=== PATIENT | male | born 1980 | race Caucasian/White ===

== ENCOUNTER 2020-03-12 05:00 | Emergency (ER) | payer MEDICAID, SELFPAY ==
[2020-03-12 05:05] VITALS: BP 143/78; PULSE 78; RESP 19; TEMP 36.8; O2SAT 98; BMI 27.8
--- NOTE | 2020-03-12 05:13 | CT_ITS ---
PROCEDURE: CT ABDOMEN PELVIS WO CON CLINICAL INDICATION: abd pain Left lower quadrant pain COMPARISON: ABDPELW/O CT ABD PELVIS W/O CONTRAST from 12/28/2016 TECHNIQUE: Axial images obtained with sagittal and coronal reformats. All CT scans at the facility use one or more dose reduction, viz: automated exposure control, ma/kV adjustment per patient size (including targeted exams where dose is matched to indication, i.e. head), or iterative reconstruction technique. FINDINGS: LOWER THORAX: Mild atelectatic changes noted in the lingula. ABDOMEN & PELVIS: The liver, gallbladder, spleen, adrenal glands, and pancreas have an unremarkable appearance. There are bilateral renal calculi measuring up to 5 mm in the lower pole of the right kidney and 1-2 mm in the mid polar region of the left kidney. There is a 3 mm stone in the proximal to mid aspect of the left ureter at the L3-L4 level with minimal dilatation of the left renal collecting system and proximal ureter proximal to the stone. Unremarkable appendix. Bowel gas pattern is nonspecific with nondistended fluid-filled loops of small bowel noted. No free air. No pelvic mass or abnormal fluid collection. There are few scattered small mesenteric lymph nodes Degenerative changes are present in the lower thoracic spine. There is a limbus vertebra at L4. IMPRESSION: 3 mm proximal to mid left ureteral stone with mild obstructive uropathy and bilateral nephrolithiasis. Dictated by: Peter Rangel MD 03/12/2020 05:44 Electronically signed by Peter Rangel MD in [place] 03/12/2020 05:44
[2020-03-12 05:21] LABS: Microscopic, Urine URINE MICROSCOPIC (MICROSCOPIC)
--- NOTE | 2020-03-12 05:26 | PC.NURSE ---
pt to radiology for ct at this time
[2020-03-12 05:28] LABS: Basophils # 0.1 K/mm3 (0-0.2); Basophils % 0.6 % (0.1-2.0); Eosinophils # 0.3 K/mm3 (0.0-0.4); Eosinophils % 2.6 % (0.1-12.0); Hematocrit 47.8 % (42.0-52.0); Hemoglobin 16.3 g/dL (14.1-18.0); Lymphocytes # 2.9 K/mm3 (0.7-4.5); Lymphocytes % 21.9 % (10-50); Mean Corpuscular HGB Conc 34.2 g/dL (31.8-35.4); Mean Corpuscular Hemoglobin 33.8 pg (27.0-31.2); Mean Corpuscular Volume 98.9 fl (80-94); Mean Platelet Volume 7.1 fl (7.4-10.4); Monocytes # 0.5 K/mm3 (0.1-1.0); Monocytes % 3.8 % (1.7-9.3); Neutrophils # 9.2 K/mm3 (1.8-7.8); Neutrophils % 71.1 % (37.0-80.0); Platelet Count 319 K/mm3 (142-424); Red Blood Count 4.83 M/mm3 (4.60-6.20); Red Cell Distribution Width 13.4 % (11.5-17.5)
[2020-03-12 05:30] LABS: Chloride 110 mmol/L (98-107); Potassium 4.1 mmoL/L (3.5-5.1); Sodium 142 mmol/L (136-145)
[2020-03-12 05:32] LABS: Amylase 82 U/L (30-110)
[2020-03-12 05:33] LABS: Alanine Aminotransferase 22 U/L (12-78); Albumin Level 4.2 g/dl (3.5-5.0); Albumin/Globulin Ratio 1.5 (1.1-1.8); Alkaline Phosphatase 62 U/L (38-126); Aspartate Amino Transferase 26 U/L (17-59); Bilirubin,Total 0.3 mg/dl (0.2-1.3); Blood Urea Nitrogen 14 mg/dl (9-20); Calcium 8.7 mg/dl (8.4-10.2); Creatinine Clearance Estimated 117 mL/min (50-200); Estimated Glomerular Filt Rate 75 ml/min (>60); GFR (African American) 91 ML/MIN (>60); Globulin 2.8 g/dL (1.3-3.2); Glucose 123 mg/dl (74-100); Lipase 215 U/L (23-300)
[2020-03-12 05:37] LABS: Anion Gap 12.1 mEq/L (5-15); Carbon Dioxide 24 mmol/L (22.0-30.0)
[2020-03-12 05:41] LABS: Appearance,Urine CLEAR (Clear); Blood, Urine 3+ (Negative); Glucose,Urine (UA) Negative (Negative); Ketones,Urine Negative (Negative); Leukocyte Esterase,Urine Negative (Negative); Nitrate,Urine Negative (Negative); PH,Urine 5.5 (5.0-8.5); Protein,Urine 1+ (Negative); Specific Gravity, Urine >= 1.030 (1.005-1.030); Urobilinogen,Urine 0.2 EU/dl (0.2)
[2020-03-12 05:45] LABS: Bilirubin,Urine Negative (Negative); Color,Urine Dark Yellow (Yellow)
[2020-03-12 05:47] LABS: Bacteria,Urine 1+ /lpf; Mucus,Urine 1+ /lpf; RBC,Urine TNTC #/hpf (0-3); WBC,Urine Occasional #/hpf (0-3)
--- NOTE | 2020-03-12 05:57 | HMH.EDUROGM ---
ED Disposition Clinical Impression: Renal colic on left side Disposition: Home, Self-Care Condition on Discharge: Good Instructions: DI for Kidney Stones Additional Instructions: fluids and see pcp and urology for follow up Prescriptions: Tamsulosin HCl [Flomax 0.4mg capsule] 0.4 mg PO HS #10 cap Transmission Status: Pending to [facility] Hydrocod/Acet 5/325 mg [[place] 5/325mg tablet] 1 tab PO Q6HP PRN #10 tab PRN Reason: Moderate To Severe Pain Prescription Printed Referrals: Daryn Oswald MD [Primary Care Provider] - - Critical Care Critical Care Time: No Attestation: On 03/12/20, the high probability of a clinically significant, sudden or life threatening deterioration of the following system(s) required my full and direct attention, intervention and personal management. The time I documented below is in addition to time spent performing reported procedures but includes the following listed in this critical care notation. Medical Decision Making - Medical Records Medical records reviewed: Yes: I reviewed the patient's medical records. - Vargas Inquiry Pt receiving controlled substance: No Vital Signs: 03/12/20 05:05 Temperature 98.2 F Temperature Source Oral Pulse Rate [Right Brachial] 78 Respiratory Rate 19 Blood Pressure [Right Arm] 143/78 H Blood Pressure Mean [Right Arm] 99 Blood Pressure Source [Right Arm] Automatic Cuff Blood Pressure Position [Right Arm] Sitting 02 Sat by Pulse Oximetry 98 Oxygen Delivery Method Room Air - Lab Data Lab results reviewed: Yes: I reviewed the patient's lab results. Lab Results 03/12/20 05:05: Urine Color Dark yellow, Urine Appearance Clear, Urine pH 5.5, Ur Specific [place] >= 1.030, Urine Protein 1+, Urine Glucose (UA) Negative, Urine Ketones Negative, Urine Blood 3+, Urine Nitrate Negative, Urine Bilirubin Negative, Urine Urobilinogen 0.2, Ur Leukocyte Esterase Negative, Urine RBC Tntc, Urine WBC Occasional, Urine Bacteria 1+, Urine Mucus 1+ 03/12/20 05:10: WBC 13.0 H, RBC 4.83, Hgb 16.3, Hct 47.8, MCV 98.9 H, MCH 33.8 H, MCHC 34.2, RDW 13.4, Plt Count 319, MPV 7.1 L, Neut % (Auto) 71.1, Lymph % (Auto) 21.9, [place] % (Auto) 3.8, Eos % (Auto) 2.6, Baso % (Auto) 0.6, Neut # (Auto) 9.2 H, Lymph # (Auto) 2.9, [place] # (Auto) 0.5, Eos # (Auto) 0.3, Baso # (Auto) 0.1 03/12/20 05:10: Sodium 142, Potassium 4.1, Chloride 110 H, Carbon Dioxide 24, Anion Gap 12.1, BUN 14, Creatinine 1.10, Estimated Creat Clear 117, Estimated GFR 75, Est GFR ( Amer) 91, Glucose 123 H, Calcium 8.7, Total Bilirubin 0.3, AST 26, ALT 22, Alkaline Phosphatase 62, Total Protein 7.0, Albumin 4.2, Globulin 2.8, Albumin/Globulin Ratio 1.5, Amylase 82, Lipase 215 Result diagrams: 03/12/20 05:10 03/12/20 05:10 Orders (Tests/Meds): ED MEDICATIONS Generic Name Dose Route Start Last Admin Trade Name Freq PRN Reason Stop Dose Admin Sodium Chloride 1,000 mls @ 999 mls/hr 03/12/20 05:30 03/12/20 05:21 Sod Chlor 0.9% 1000ml Bag IV 03/12/20 06:30 999 mls/hr .Q1H1M ALEX Administration Discontinued Medications Generic Name Dose Route Start Last Admin Trade Name Freq PRN Reason Stop Dose Admin Ketorolac Tromethamine 30 mg 03/12/20 05:18 03/12/20 05:21 Toradol 30mg/Ml Vial IV 03/12/20 05:19 30 mg ONCE ONE Administration Morphine Sulfate 4 mg 03/12/20 05:18 03/12/20 05:21 Morphine 4mg/Ml Syringe IV 03/12/20 05:19 4 mg ONCE ONE Administration Ondansetron HCl 4 mg 03/12/20 05:18 03/12/20 05:21 Zofran 4mg/2ml Vial IV 03/12/20 05:19 4 mg ONCE ONE Administration - CT Data CT Scan: Abdomen, Pelvis Time Received: 06:[address] Reviewed: Yes: I have viewed the radiologist's interpretation Preliminary Findings: Abnormal (3 mm stone ) Male Urogenital HPI - General Chief complaint: Urogenital-Male Stated complaint: Possible Kidney stone Time Seen by Provider: 03/12/20 05:15 Mode of Arrival: Family Vehicle Source o
[2020-03-12 06:13] VITALS: BP 119/73; PULSE 72; RESP 16; TEMP 36.9; O2SAT 98
== END 2020-03-12 06:15 | disposition home or self-care (01) ==
PROVIDERS: Emergency Provider Emergency Medicine; PCP Emergency Medicine
DX: N23 Unspecified renal colic (principal); F17.210 Nicotine dependence, cigarettes, uncomplicated
CPT/HCPCS: 74176; 80053; 81001; 82150; 83690; 85025; 96365; 96375; 96376; 99283; J2405

== ENCOUNTER 2020-08-29 10:33 | Emergency (ER) | payer MEDICAID, SELFPAY ==
[2020-08-29 11:00] VITALS: BP 144/87; PULSE 83; RESP 14; TEMP 36.6; O2SAT 97; BMI 27.8
--- NOTE | 2020-08-29 11:21 | HMH.EDUTC ---
[facility] Disposition Clinical Impression: Bronchitis, COVID-19 virus test result unknown Disposition: Home, Self-Care Condition on Discharge: Good Instructions: DI for Nausea -- Adult, DI for Nausea -- Child, DI for Diarrhea and Traveler's Diarrhea -- Adult, DI for Diarrhea and Traveler's Diarrhea -- Child Additional Instructions: Tylenol and ibuprofen as needed for pain or fever Humidifier/vaporizer/hot steamy shower Follow-up with primary care tomorrow. Follow-up immediately in the ER of the [facility] for new or worsening symptoms or no noticeable improvement over the next 48-72 hours. Stop smoking Inhaler every 4-6 hours as needed. Should help open airways improved cough, wheezing, shortness of breath Start steroids today. Helps with inflammation therefore coughing and wheezing. Follow directions on package. Patient states they have taken them before. self isolate until test results are known neg Prescriptions: Albuterol Sulfate [Albuterol Sulfate Hfa] 6.7 gm IH Q6 PRN 14 Days #1 [email or web address] PRN Reason: Wheezing Prescription Printed predniSONE [Prednisone 20mg Tab] 20 mg PO BID #10 tab Prescription Printed Referrals: Daryn Oswald MD [Primary Care Provider] - Forms: Work/School Release Time of Disposition: 11:27 Medical Decision Making - Vargas Inquiry Pt receiving controlled substance: No Vital Signs: 08/29/20 11:00 Temperature 97.8 F Temperature Source Oral Pulse Rate [Right Brachial] 83 Respiratory Rate 14 Blood Pressure [Right Arm] 144/87 H Blood Pressure Mean [Right Arm] 106 Blood Pressure Source [Right Arm] Automatic Cuff Blood Pressure Position [Right Arm] Sitting 02 Sat by Pulse Oximetry 97 Oxygen Delivery Method Room Air Orders (Tests/Meds): ORDERS Category Date Time Status Covid-19 Nasal PCR ([facility]) Routine Lab 08/29/20 10:45 Received [facility] HPI - General Chief complaint: Nausea/Vomiting/Diarrhea Stated complaint: fever, cramps, sore throat, loss of taste/smell Time Seen by Provider: 08/29/20 11:21 Mode of Arrival: Ambulatory Source of Information: Patient Limitations: No Limitations Description of Symptoms (Recalled from Triage Doc. by RN): PATIENT REQUESTING COVID TEST; C/O HEADACHE, NAUSEA, DIARRHEA, FATIGUE, AND FEVER HEENT Symptoms (Recalled from RN notes): Yes Resp Symptoms (Recalled from RN notes): No Skin Symptoms (Recalled from RN notes): No MS Symptoms (Recalled from RN notes): No Functional Status (Recalled from RN notes): WNL - History of Present Illness Provider Complaint: 40 yr old male presents for covid test. pt states he is having nausea,diarreha, body aches, wheezing and low grade fever for 5 days. pt states he does feel better today but request covid test due to ill mom. - Related Data Previous Rx's Medication Instructions Recorded ibuprofen 800 mg tablet 800 mg PO Q8HP PRN #15 tab 04/05/18 meloxicam 15 mg tablet 15 mg PO DAILY #30 tab 06/11/18 Hydrocod/Acet 5/325 mg [[place] 1 tab PO Q6HP PRN #10 tab 03/12/20 5/325mg tablet] Tamsulosin HCl [Flomax 0.4mg 0.4 mg PO HS #10 cap 03/12/20 capsule] Albuterol Sulfate [Albuterol 6.7 gm IH Q6 PRN 14 Days #1 08/29/20 Sulfate Hfa] hfa.aer.ad predniSONE [Prednisone 20mg 20 mg PO BID #10 tab 08/29/20 Tab] Allergies Allergy/AdvReac Type Severity Reaction Status Date / Time No Known Allergies Allergy Verified 06/11/18 14:21 - Worker's Comp Is this a Worker's Comp case?: No [facility] History - Hepatitis A Screen Drug use history?: No High risk sexual behaviors?: No History of sexually transmitted infection?: No Currently employed?: No Childcare worker?: No Do you have indoor plumbing?: Yes Do you have electricity?: Yes Attestation statement:: This patient has been screened for Hepatitis A risk factors. I have reviewed the patient's past medical history: Yes Medical History: Reports:: Kidney Stones Laterality Cases: Right: Arthroscopy Knee Other Surgeries: Yes: Ureter S
[2020-08-29 11:28] VITALS: BP 144/87; PULSE 83; RESP 14; TEMP 36.6; O2SAT 97
== END 2020-08-29 11:33 | disposition home or self-care (01) ==
PROVIDERS: Emergency Provider Nurse Practitioner Family; PCP Emergency Medicine
DX: Z20.822 Contact with and (suspected) exposure to COVID-19 (principal); J20.9 Acute bronchitis, unspecified
CPT/HCPCS: 99202; G0463; U0003

== ENCOUNTER 2020-10-28 11:57 | Emergency (ER) | payer MEDICAID, SELFPAY ==
[2020-10-28 12:16] VITALS: BP 135/80; PULSE 77; RESP 14; TEMP 37; O2SAT 99; BMI 27.8
[2020-10-28 12:33] VITALS: BP 132/81; PULSE 74; RESP 16; TEMP 36.6
--- NOTE | 2020-10-28 12:37 | HMH.EDUTC ---
[facility] Disposition Clinical Impression: Viral syndrome, Exposure to COVID-19 virus Disposition: Home, Self-Care Condition on Discharge: Good Instructions: DI for COVID-19 (Suspected or Confirmed ), Preventing the Spread of Coronavirus Discharge Instructions Additional Instructions: Drink plenty of fluids. Take tylenol for pain or fever. Return if you begin to have difficulty breathing. Follow up with your regular doctor. GO TO THE ER FOR ANY WORSENING SYMPTOMS Prescriptions: Ondansetron [Zofran 4mg ODT] 4 mg PO Q8HP PRN #12 tab.rapdis PRN Reason: Nausea Transmission Status: Received by [facility] Benzonatate [Tessalon Perle 100mg Cap] 100 mg PO TIDP PRN #30 cap PRN Reason: Cough Transmission Status: Received by [facility] Azithromycin [Z-Avinash 250mg Tab*] 250 mg PO UD DOSE PK #6 tab Transmission Status: Received by [facility] Referrals: Daryn Oswald MD [Primary Care Provider] - Forms: Work/School Release Time of Disposition: 12:40 Medical Decision Making - Medical Records Medical records reviewed: No: I reviewed the patient's medical records. - Vargas Inquiry Pt receiving controlled substance: No Vital Signs: 10/28/20 12:16 10/28/20 12:33 Temperature 98.6 F 98 F Temperature Source Oral Pulse Rate 74 Pulse Rate [Right] 77 Respiratory Rate 14 16 Blood Pressure 132/81 Blood Pressure [Right Arm] 135/80 Blood Pressure Mean [Right Arm] 98 Blood Pressure Source [Right Arm] Automatic Cuff Blood Pressure Position [Right Arm] Sitting 02 Sat by Pulse Oximetry 99 Oxygen Delivery Method Room Air Orders (Tests/Meds): ORDERS Category Date Time Status Covid-19 Nasal PCR ([facility]) Routine Lab 10/28/20 12:19 Received [facility] HPI - General Stated complaint: stomach cramps, tired covid exposure Time Seen by Provider: 10/28/20 12:25 Mode of Arrival: Ambulatory Source of Information: Patient Limitations: No Limitations Description of Symptoms (Recalled from Triage Doc. by RN): EXPOSURE TO COVID POSITIVE DAUGHTER. PT PRESENTS WITH FATIGUE, MUSCLE ACHES, AND [place]. HEENT Symptoms (Recalled from RN notes): No Resp Symptoms (Recalled from RN notes): No Skin Symptoms (Recalled from RN notes): No MS Symptoms (Recalled from RN notes): Yes (BODY ACHES) Functional Status (Recalled from RN notes): NA - History of Present Illness Provider Complaint: e states that since yesterday she has had sore throat, body aches, cough and feeling bad. His daughter was diagnosed with Covid-19 yesterday. - Related Data Previous Rx's Medication Instructions Recorded ibuprofen 800 mg tablet 800 mg PO Q8HP PRN #15 tab 04/05/18 meloxicam 15 mg tablet 15 mg PO DAILY #30 tab 06/11/18 Hydrocod/Acet 5/325 mg [[place] 1 tab PO Q6HP PRN #10 tab 03/12/20 5/325mg tablet] Tamsulosin HCl [Flomax 0.4mg 0.4 mg PO HS #10 cap 03/12/20 capsule] Albuterol Sulfate [Albuterol 6.7 gm IH Q6 PRN 14 Days #1 08/29/20 Sulfate Hfa] hfa.aer.ad predniSONE [Prednisone 20mg 20 mg PO BID #10 tab 08/29/20 Tab] Azithromycin [Z-Avinash 250mg Tab*] 250 mg PO UD DOSE PK #6 tab 10/28/20 Benzonatate [Tessalon Perle 100mg 100 mg PO TIDP PRN #30 cap 10/28/20 Cap] Ondansetron [Zofran 4mg ODT] 4 mg PO Q8HP PRN #12 tab.rapdis 10/28/20 Allergies Allergy/AdvReac Type Severity Reaction Status Date / Time No Known Allergies Allergy Verified 10/28/20 12:03 - Worker's Comp Is this a Worker's Comp case?: No [facility] History - Hepatitis A Screen Drug use history?: No High risk sexual behaviors?: No History of sexually transmitted infection?: No Currently employed?: No Childcare worker?: No Do you have indoor plumbing?: Yes Do you have electricity?: Yes Attestation statement:: This patient has been screened for Hepatitis A risk factors. I have reviewed the patient's past medical history: Yes Medical History: Reports:: Kidney Stones Laterality Cases: Right: Arthroscopy Knee Other [place]
== END 2020-10-28 12:48 | disposition home or self-care (01) ==
PROVIDERS: Emergency Provider Nurse Practitioner Family; PCP Emergency Medicine
DX: Z20.822 Contact with and (suspected) exposure to COVID-19 (principal); B34.9 Viral infection, unspecified; F17.210 Nicotine dependence, cigarettes, uncomplicated
CPT/HCPCS: 99202; G0463; U0003

== ENCOUNTER 2021-09-22 07:32 | Emergency (ER) | payer MEDICAID, SELFPAY ==
[2021-09-22 07:32] VITALS: BP 153/97; PULSE 81; RESP 18; TEMP 36.9; O2SAT 100; BMI 27.8
[2021-09-22 07:41] VITALS: BP 152/94; PULSE 82; O2SAT 96
--- NOTE | 2021-09-22 07:55 | HMH.EDGENADL ---
ED Disposition Clinical Impression: Kidney stone on right side Disposition: Home, Self-Care Condition on Discharge: Fair Instructions: DI for Kidney Stones Additional Instructions: You have been evaluated for flank pain, kidney stone. Please follow-up with Dr. Saucedo at your earliest convenience. Call his office for an appointment. Take ibuprofen for pain. [place] for extreme pain. Zofran for nausea. Flomax. Return to the emergency department at once for any new or worsening symptoms, intractable pain, vomiting, fevers, other concerns Prescriptions: Hydrocod/Acet 5/325 mg [[place] 5/325mg tablet] 1 tab PO Q6HP PRN #12 tab PRN Reason: Severe Pain Transmission Status: Received by [facility] Tamsulosin HCl [Flomax 0.4mg capsule] 0.4 mg PO HS #7 cap Transmission Status: Received by [facility] Ibuprofen [Ibuprofen 600mg Tablet] 600 mg PO Q6 #12 tab Transmission Status: Received by [facility] ondansetron HCL [Ondansetron 4mg tab*] 4 mg PO Q6 PRN #12 tab PRN Reason: Vomiting Transmission Status: Received by [facility] Referrals: Daryn Oswald MD [Primary Care Provider] - Emmanuel Saucedo MD [Staff Physician] - Forms: Work/School Release Time of Disposition: 09:57 - Critical Care Critical Care Time: No Attestation: On 09/22/21, the high probability of a clinically significant, sudden or life threatening deterioration of the following system(s) required my full and direct attention, intervention and personal management. The time I documented below is in addition to time spent performing reported procedures but includes the following listed in this critical care notation. Medical Decision Making - Medical Records Medical records reviewed: Yes: I reviewed the patient's medical records. - Vargas Inquiry Pt receiving controlled substance: No Vital Signs: 09/22/21 07:32 09/22/21 07:41 09/22/21 08:21 Temperature 98.4 F Temperature Source Oral Pulse Rate 82 82 Pulse Rate [Left Radial] 81 Respiratory Rate 18 Blood Pressure 152/94 H Blood Pressure [Right Arm] 153/97 H Blood Pressure Mean [Right Arm] 115 Blood Pressure Source [Right Arm] Automatic Cuff Blood Pressure Position [Right Arm] Sitting 02 Sat by Pulse Oximetry 100 96 97 Oxygen Delivery Method Room Air - Lab Data Lab Results 09/22/21 07:40: Urine Color Yellow, Urine Appearance Clear, Urine pH 5.5, Ur Specific [place] >= 1.030, Urine Protein 1+, Urine Glucose (UA) Negative, Urine Ketones Negative, Urine Blood 3+, Urine Nitrate Negative, Urine Bilirubin 1+ A, Urine Urobilinogen 0.2, Ur Leukocyte Esterase Negative, Urine RBC 50-100, Urine WBC Occasional, Ur Squamous Epith Cells Occasional, Calcium Oxalate Crystal Trace, Urine Bacteria Trace 09/22/21 07:45: WBC 6.1, RBC 4.88, Hgb 15.9, Hct 48.8, MCV 100.0 H, MCH 32.6 H, MCHC 32.6, RDW 13.0, Plt Count 331, MPV 7.7, Neut % (Auto) 45.6, Lymph % (Auto) 37.4, [place] % (Auto) 7.3, Eos % (Auto) 5.8, Baso % (Auto) 4.0 H, Neut # (Auto) 2.8, Lymph # (Auto) 2.3, [place] # (Auto) 0.4, Eos # (Auto) 0.4, Baso # (Auto) 0.2 09/22/21 07:45: Sodium 141, Potassium 4.1, Chloride 110 H, Carbon Dioxide 25, Anion Gap 10.1, BUN 15, Creatinine 0.80, Estimated Creat Clear 157, Estimated GFR 107, Est GFR ( Amer) 130, Glucose 112 H, Calcium 8.8, Total Bilirubin 0.4, AST 35, ALT 23, Alkaline Phosphatase 74, Total Protein 7.0, Albumin 4.3, Globulin 2.7, Albumin/Globulin Ratio 1.6 Result diagrams: 09/22/21 07:45 09/22/21 07:45 Orders (Tests/Meds): ED MEDICATIONS Generic Name Dose Route Start Last Admin Trade Name Freq PRN Reason Stop Dose Admin Tamsulosin HCl 0.4 mg 09/22/21 21:00 09/22/21 08:48 Tamsulosin 0.4mg Capsule PO 10/22/21 20:59 0.4 mg HS ALEX Administration Discontinued Medications Generic Name Dose Route Start Last Admin Trade Name Freq PRN Reason Stop Dose Admin Hydrocodone Bitart/Acetaminophen 2 tab 09/22/21 08:41 09/22/21 08
--- NOTE | 2021-09-22 08:01 | CT_ITS ---
FINAL REPORT CLINICAL HISTORY: right flank pain rt lower quad pain since 1 am this morning nausea/vomiting COMPARISON: 03/12/2020 FINDINGS: Technique: Axial images through the abdomen and pelvis were performed by computed tomography. This study was performed with techniques to keep radiation doses as low as reasonably achievable (ALARA). Individualized dose reduction techniques using automated exposure control or adjustment of mA and/or kV according to the patient's size were employed. Abdomen: The lung bases are clear. The liver is normal in size and attenuation. The gallbladder is present. The spleen is unremarkable. The pancreas is normal. The adrenals are normal. The aorta is normal in caliber. There is a circumaortic left renal vein. There is moderate right hydronephrosis secondary to an obstructing stone in the right UPJ measuring 9 mm. Multiple small stones are seen in the renal collecting systems bilaterally. Pelvis: The appendix is unremarkable. No stones are seen in the urinary bladder. There is no free fluid or adenopathy. IMPRESSION: Moderate right hydronephrosis secondary to an obstructing UPJ stone. Bilateral nephrolithiasis. Reviewed, Interpreted and Dictated by Edvin Javier MD Transcribed by Luisana Hsu Authenticated by Edvin Javier MD on 09/22/2021 08:53:35 AM [facility]
[2021-09-22 08:11] LABS: Microscopic, Urine URINE MICROSCOPIC (MICROSCOPIC)
[2021-09-22 08:14] LABS: Appearance,Urine CLEAR (Clear); Blood, Urine 3+ (Negative); Color,Urine YELLOW (Yellow); Glucose,Urine (UA) Negative (Negative); Ketones,Urine Negative (Negative); Leukocyte Esterase,Urine Negative (Negative); Nitrate,Urine Negative (Negative); PH,Urine 5.5 (5.0-8.5); Protein,Urine 1+ (Negative); Specific Gravity, Urine >= 1.030 (1.005-1.030); Urobilinogen,Urine 0.2 EU/dl (0.2)
[2021-09-22 08:16] LABS: Basophils # 0.2 K/mm3 (0-0.2); Eosinophils # 0.4 K/mm3 (0.0-0.4); Eosinophils % 5.8 % (0.1-12.0); Hematocrit 48.8 % (42.0-52.0); Hemoglobin 15.9 g/dL (14.1-18.0); Lymphocytes # 2.3 K/mm3 (0.7-4.5); Lymphocytes % 37.4 % (10-50); Mean Corpuscular HGB Conc 32.6 g/dL (31.8-35.4); Mean Corpuscular Hemoglobin 32.6 pg (27.0-31.2); Mean Platelet Volume 7.7 fl (7.4-10.4); Monocytes # 0.4 K/mm3 (0.1-1.0); Monocytes % 7.3 % (1.7-9.3); Neutrophils # 2.8 K/mm3 (1.8-7.8); Neutrophils % 45.6 % (37.0-80.0); Platelet Count 331 K/mm3 (142-424); Red Blood Count 4.88 M/mm3 (4.60-6.20); White Blood Count 6.1 K/mm3 (4.8-10.8)
[2021-09-22 08:21] VITALS: PULSE 82; O2SAT 97
[2021-09-22 08:23] LABS: Alanine Aminotransferase 23 U/L (12-78); Albumin Level 4.3 g/dl (3.5-5.0); Albumin/Globulin Ratio 1.6 (1.1-1.8); Alkaline Phosphatase 74 U/L (38-126); Anion Gap 10.1 mEq/L (5-15); Aspartate Amino Transferase 35 U/L (17-59); Bilirubin,Total 0.4 mg/dl (0.2-1.3); Blood Urea Nitrogen 15 mg/dl (9-20); Calcium 8.8 mg/dl (8.4-10.2); Carbon Dioxide 25 mmol/L (22.0-30.0); Chloride 110 mmol/L (98-107); Creatinine Clearance Estimated 157 mL/min (50-200); Estimated Glomerular Filt Rate 107 ml/min (>60); GFR (African American) 130 ML/MIN (>60); Globulin 2.7 g/dL (1.3-3.2); Glucose 112 mg/dl (74-100); Potassium 4.1 mmoL/L (3.5-5.1); Sodium 141 mmol/L (136-145)
[2021-09-22 08:27] LABS: Bilirubin,Urine 1+ (Negative)
[2021-09-22 08:29] LABS: Bacteria,Urine Trace /lpf; RBC,Urine 50-100 #/hpf (0-3); Squamous Epithelial Cell,Urine Occasional #/hpf (0-5); WBC,Urine Occasional #/hpf (0-3)
[2021-09-22 08:30] LABS: Calcium Oxalate Crystals,Urine Trace /lpf
[2021-09-22 10:04] VITALS: BP 150/90; PULSE 82; RESP 18; TEMP 36.8; O2SAT 98
== END 2021-09-22 10:06 | disposition home or self-care (01) ==
PROVIDERS: Emergency Medicine; Emergency Provider Emergency Medicine; PCP Emergency Medicine
DX: N20.0 Calculus of kidney (principal)
CPT/HCPCS: 74176; 80053; 81001; 85025; 96365; 96366; 99283; J2405

== ENCOUNTER → 2021-10-08 10:54 | Outpatient (CLI) | payer MEDICAID, SELFPAY | PROVIDERS: PCP Emergency Medicine; Visit Provider Urology | DX: Z01.812 Encounter for preprocedural laboratory examination (principal); Z11.52 Encounter for screening for COVID-19; N20.1 Calculus of ureter | CPT/HCPCS: C9803; U0003; U0005 ==

== ENCOUNTER 2021-10-11 10:26 | Day surgery (SDC) | payer MEDICAID, SELFPAY ==
[2021-10-10 10:52] VITALS: BMI 29.2
[2021-10-11] VITALS (11 sets, daily range): BP systolic 117–150; BP diastolic 63–98; PULSE 60–82; RESP 14–17; TEMP 36.4–36.6; O2SAT 94–98
--- NOTE | 2021-10-11 10:39 | XR_ITS ---
FINAL REPORT CLINICAL HISTORY: kidney stone..rt side pain x 2 weeks COMPARISON: CT dated 09/22/2021 FINDINGS: SINGLE VIEW ABDOMEN There is a nonspecific, nonobstructive gas pattern. There is no bowel dilatation. There is a calcification at right L2-L3 level measuring 6 mm, likely a proximal right ureteral stone as seen on recent CT. The position is probably unchanged. There is a small right renal stone. There are mild vascular calcification. IMPRESSION: Small right renal stone. Proximal right ureteral stone, probably unchanged from previous position. Reviewed, Interpreted and Dictated by Mahad Montes III, MD Transcribed by Luisana Hsu Authenticated by Mahad Montes III, MD on 10/11/2021 12:12:57 PM [facility]
--- NOTE | 2021-10-11 11:27 | HMH.ANESCL ---
[facility] Anesthesia Checklist - Patient Identification Patient Identification: Arm Band - Structural Data Admitted From: Home Planned Operative Procedure/s: ESWL Consent for Planned Operative Procedure(s) Verified: Yes - NPO Status Verified Time NPO: 00:00 - Additional verifications Anesthesia Reactions: No Hx Blood Transfusions: No Blood Transfusion Reaction: No - Airway Assessment C-Spine Mobility Assessed: Yes TMJ Mobility Assessed: Yes Dentition: Good Dentition - Neurological Assessment Level of Consciousness: Awake Hx Seizures: No Numbness or tingling in extremities: No - Anesthesia Plan Anesthesia Risk discussed: Yes Anesthesia Plan: Verified ASA Class: I Anesthesia Type: General [facility] History I have reviewed the patient's past medical history: Yes Medical History: Reports:: Kidney Stones Denies:: Cancer, Diabetes Mellitus Type 1, Diabetes Mellitus Type 2, Internal Pacemaker, MRSA, Seizures *Have you ever received a pneumonia vaccine?: No *Have you received a flu vaccine this season?: No Other Medical History: Denies: Blood Transfusion Reaction Anesthesia experience/problems:: None Laterality Cases: Right: Arthroscopy Knee Other Surgeries: Yes: No Previous Surgery, Ureter Stent, Other. No: Pacemaker Amputation: No Fractures: No - *Social History Last grade of school completed: 11th or 12th Smoking Status: Current every day smoker Tobacco Type: cigarettes # Packs/Day (cigarettes): 10 Alcohol Intake: current Alcohol Intake Frequency:: a few times a month Substance Use Type: denies use *Occupational Status:: employed Housing: house Household Members: spouse, family *Travel in the last 8 weeks: None Family Hx:: Cancer, Stroke
--- NOTE | 2021-10-11 12:54 | HMH.ANESI ---
[facility] Anesthesia Record Part I Intake, IV Amount: 350 Estimated blood loss (mL): 0 Urine output (mL): 0 Blood Pressure: 136/70 SaO2: 94 Pulse Rate: 60 Respiratory Rate: 17 Temperature: 97.5 F Patient is:: Drowsy, Oral/Nasal airway Stable to PACU at:: 12:53
--- NOTE | 2021-10-11 13:06 | HMH.OPNOTE ---
Date of procedure: 10/11/21 Pre-op Diagnosis:: 9 mm right ureteral proximal stone Post-op Diagnosis:: Same Procedure performed:: Cystoscopy with right ureteral stone manipulation and right ESWL Surgeon:: Emmanuel Saucedo MD [employer] PARALEGAL:: Laura Huff Anesthesia: LMA Estimated blood loss (mL): 0 Clinical Note:: 41-year-old white male with recent right renal colic noted to have a 9 mm stone in his proximal ureter. He has been doing well over the past 2 weeks and presents for ESWL today. Operative findings:: KUB shows 9 mm stone at the right proximal ureter. Stone was manipulated back into the right renal pelvis and ESWL performed with good fragmentation of the stone. Operative note:: Patient taken to the operating room after informed consent was obtained. He was placed on the operating table and general anesthesia administered. Preoperative antibiotics and sequential compression devices placed. He was then placed into the dorsal lithotomy position and prepped and draped in the standard surgical fashion. Twenty-two Vincentian cystoscope passed into the urethra and into the bladder without difficulty. The bladder was examined in a systematic fashion and there were no abnormalities present. The ureteral orifices in their normal anatomic position. A five Vincentian ureteral catheter passed into the right ureteral orifice and under fluoroscopy was passed up to the right proximal ureter. The stone was easily seen and the stone was manipulated back into the renal pelvis with moderate difficulty. The ureteral catheter was left indwelling during the ESWL procedure. The scope was removed and patient placed into the supine position and positioned so that the stone was that F2 of the lithotripter. 3000 shockwaves then delivered to the stone at a maximum KV of seven. Stone fragmented well and there is no visible stone at the end of treatment. The ureteral catheter was removed and Urojet placed into the urethra. The patient tolerated the procedure well there are no complications. Condition: stable Disposition: PACU Specimens:: None Complications:: None
--- NOTE | 2021-10-11 14:34 | HMH.ANESII ---
[facility] Anesthesia Record Part II Discharge Time: 13:33 Destination: Surgical Day Care (OP Surgery) PACU nurse assessment reviewed?: Yes Patient Condition:: Good Anesthesia Complications:: None Swallowing reflex intact?: Yes Cyanosis?: No Blood Pressure: 129/70 Pulse Rate: 74 Temperature: 97.6 F Mental Status: Alert & Oriented Pain level:: 2 Nausea and/or vomitting:: None Intake, IV Amount: 0
== END 2021-10-11 14:04 | disposition home or self-care (01) ==
LOC: OR 10:27
PROVIDERS: PCP Emergency Medicine; Visit Provider Urology
PROC: (CPT 52330; principal; 2021-10-11 10:45)
DX: N20.1 Calculus of ureter (principal)
CPT/HCPCS: 52330; 52353; 74018; 96374

== ENCOUNTER 2023-01-19 10:48 | Emergency (ER) | payer MEDICAID, SELFPAY ==
[2023-01-19] VITALS (8 sets, daily range): BP systolic 96–145; BP diastolic 58–82; PULSE 56–73; RESP 16–18; TEMP 36.8–36.9; O2SAT 96–100; BMI 28.7
--- NOTE | 2023-01-19 10:48 | ECG_ITS ---
APPROVED REPORT Exam: Resting ECG HR:65 bpm ECG Measurements Heart Rate 65 AXES KS 150 P 34 QRSd 121 QRS -10 QT 387 T 39 QTc 398 Conclusion SINUS RHYTHM POSSIBLE RIGHT VENTRICULAR CONDUCTION DELAY [RSR (QR) IN V1/V2] BORDERLINE ECG UNCONFIRMED REPORT Electronically signed by : Usama Casas MD 01/20/2023 07:14:28
--- NOTE | 2023-01-19 10:57 | HMH.EDGENADL ---
Discharge Plan Disposition Patient Disposition: Home, Self-Care Prescriptions Prescriptions: New prednisone 20 mg tablet 60 mg PO DAILY 7 Days Qty: 21 0RF albuterol sulfate 90 mcg/actuation HFA aerosol inhaler 4 inh inhalation Q4H PRN (Reason: shortness of breath or wheezing) Qty: 8.5 0RF Rx Instructions: 4 puffs every 4 hours for 48 hours then as needed for shortness of breath or wheezing following Referrals Follow up/Referrals: Aniket Okeefe MD [Staff Physician] - See instructions (1-2 weeks f/u for ED visit ) Activity Restrictions/Add. Instructions Additional Instructions/Restrictions: Your coronary CTA today did not demonstrate any disease in your coronary vessels your work-up did not demonstrate heart attack as well. He did have wheezing and increasing cough and shortness of breath in the setting of chronic smoking you likely have undiagnosed COPD and this is most likely a COPD exacerbation we will treat accordingly. Please follow-up with primary care doctor in [address] Okeefe within 1 to 2 weeks. Clinical Impressions Clinical Impression: Chest pain, Reactive airway disease Discharge ED Provider: Rory Loera General Adult HPI General Chief complaint: Chest Pain Stated complaint: abdnormal ekg at pcp Time Seen by Provider: 01/19/23 10:57 History of Present Illness HPI narrative: Patient is a 42-year-old male presenting today with shortness of breath and fatigue and some intermittent chest pain. Patient has a [id number] history of smoking states that his symptoms began about a month ago when he was having infectious symptoms and body had a cold subsequently he has been somewhat short of breath and more fatigued than normal. He states that he has a history of wheezing and his at the bedside states his wheezing has been worsening he states has been having a worsening cough as well. His chest pains been intermittent only lasting moments nonexertional he is able to meet oxygen demand requirements and able to work himself walk up stairs etc. without any discomfort. There is no radiation however every once a while he has some tingling sensation in his left anterior chest and his left upper extremity. No significant neck pain. No diaphoresis associated with any of these episodes. He went to his primary care doctor today stating that he has not been feeling right they sent an EKG to Dr. Okeefe who told the patient to come to the hospital. Is unclear as to whether or not he was told to go the emergency department or his office. Patient has no known history of coronary disease or other diagnosed medical problems he states. Related Data Previous Rx's Medication Instructions Recorded albuterol sulfate 90 mcg/actuation 4 inh inhalation Q4H PRN shortness 01/19/23 aerosol inhaler of breath or wheezing #8.5 grams prednisone 20 mg tablet 60 mg PO DAILY 7 days #21 tabs 01/19/23 Allergies Allergy/AdvReac Type Severity Reaction Status Date / Time No Known Allergies Allergy Verified 10/11/21 11:07 [facility] Disclaimer: The information contained in this section may have been updated after the patient was seen, as this information can be updated by other users. Social History Smoking Status: Current every day smoker tobacco type: cigarettes packs per day: 1 alcohol intake: never substance use type: denies use current occupational status: employed Travel in the last 8 weeks: None household members: family housing: house caffeine: No ROS Obtained: Yes All systems reviewed & no additional complaints except as documented Physical Exam General General appearance: alert and in no apparent distress Respiratory Respiratory exam: Present wheezes Cardiovascular Cardiovascular exam: Present regular rate; Absent tachycardia Neurological Exam Neurological exam: Present alert and oriented X3 Medical Decision Making
--- NOTE | 2023-01-19 11:08 | XR_ITS ---
FINAL REPORT CLINICAL HISTORY: dyspnea chest pain x 1 month COMPARISON: None FINDINGS: A single portable view of the chest was obtained. The heart size and pulmonary vascularity are within normal limits. The mediastinum is within normal limits. No acute pulmonary abnormality is identified. The bony thorax is intact. IMPRESSION: No active cardiopulmonary disease. Reviewed, Interpreted and Dictated by Mahad Montes III, MD Transcribed by Barbara Irizarry Authenticated and [facility]
--- NOTE | 2023-01-19 11:12 | PC.NURSE ---
grant wood from cardiology at
[2023-01-19 11:17] LABS: Basophils # 0.1 K/mm3 (0-0.2); Eosinophils # 0.3 K/mm3 (0.0-0.4); Eosinophils % 4.5 % (0.1-12.0); Hematocrit 48.7 % (42.0-52.0); Hemoglobin 15.7 g/dL (14.1-18.0); Lymphocytes # 2.4 K/mm3 (0.7-4.5); Lymphocytes % 41.9 % (10-50); Mean Corpuscular HGB Conc 32.1 g/dL (31.8-35.4); Mean Corpuscular Hemoglobin 32.2 pg (27.0-31.2); Mean Corpuscular Volume 100.3 fl (80-94); Mean Platelet Volume 7.6 fl (7.4-10.4); Monocytes # 0.2 K/mm3 (0.1-1.0); Monocytes % 4.4 % (1.7-9.3); Neutrophils # 2.7 K/mm3 (1.8-7.8); Neutrophils % 48.1 % (37.0-80.0); Platelet Count 297 K/mm3 (142-424); Red Blood Count 4.86 M/mm3 (4.60-6.20); Red Cell Distribution Width 13.3 % (11.5-17.5); White Blood Count 5.6 K/mm3 (4.8-10.8)
[2023-01-19 11:18] LABS: Chloride 106 mmol/L (98-107); Potassium 4.3 mmoL/L (3.5-5.1); Sodium 141 mmol/L (136-145)
--- NOTE | 2023-01-19 11:18 | PC.NURSE ---
RESP AT BS
[2023-01-19 11:21] LABS: Alanine Aminotransferase 24 U/L (12-78); Albumin Level 4.5 g/dl (3.5-5.0); Albumin/Globulin Ratio 1.6 (1.1-1.8); Alkaline Phosphatase 71 U/L (38-126); Anion Gap 11.3 mEq/L (5-15); Aspartate Amino Transferase 31 U/L (17-59); Bilirubin,Total 0.4 mg/dl (0.2-1.3); Blood Urea Nitrogen 14 mg/dl (9-20); Calcium 8.8 mg/dl (8.4-10.2); Carbon Dioxide 28 mmol/L (22.0-30.0); Creatinine Clearance Estimated 161 mL/min (50-200); Estimated Glomerular Filt Rate 107 ml/min (>60); GFR (African American) 129 ML/MIN (>60); Globulin 2.8 g/dL (1.3-3.2); Glucose 100 mg/dl (74-100); Total Protein,Serum 7.3 g/dl (6.3-8.2)
[2023-01-19 11:31] LABS: NT Pro Brain Natriuretic Pep. 44.5 pg/mL (0-125)
[2023-01-19 11:34] LABS: Troponin I < 0.01 ng/ml (0.00-0.034)
--- NOTE | 2023-01-19 11:36 | PC.NURSE ---
rad at bedside
--- NOTE | 2023-01-19 11:39 | PC.NURSE ---
DR. HURTADO AT BEDSIDE
--- NOTE | 2023-01-19 12:04 | PC.NURSE ---
2 SL nitroglycerin tablets given at [address] [place] [address] love request pt to have 2 nitro SL [address] coronary.
--- NOTE | 2023-01-19 12:21 | PC.NURSE ---
PT BACK FROM RADIOLOGY
== END 2023-01-19 13:49 | disposition home or self-care (01) ==
PROVIDERS: Emergency Provider Student in an Organized Health Care Education/Training Program; PCP Nurse Practitioner Family
DX: R07.9 Chest pain, unspecified (principal); J45.909 Unspecified asthma, uncomplicated; R53.83 Other fatigue; F17.210 Nicotine dependence, cigarettes, uncomplicated
CPT/HCPCS: 71045; 75574; 80053; 83880; 84484; 85025; 93005; 99285; Q9967

== ENCOUNTER 2023-07-18 08:42 | Day surgery (SDC) | payer MEDICAID, SELFPAY ==
[2023-07-16 10:28] VITALS: BMI 27.3
[2023-07-18 08:58] VITALS: BP 116/71; PULSE 71; RESP 18; TEMP 36.7; O2SAT 95
[2023-07-18 09:36] VITALS: O2SAT 100
--- NOTE | 2023-07-18 09:52 | P.PNANES_ITS ---
[facility] Disclaimer: The information contained in this section may have been updated after the patient was seen, as this information can be updated by other users. Medical History Asthma COPD (chronic obstructive pulmonary disease) History of gastroesophageal reflux (GERD) Kidney stone Surgical History History of knee replacement Family History Other Family history of acute congestive heart failure Family history of cancer Family history of diabetes mellitus type II Social History Smoking Status: Current every day smoker tobacco type: cigarettes packs per day: 3 years smoked: 25 second hand exposure: Yes alcohol intake: current substance use type: marijuana current occupational status: employed Travel in the last 8 weeks: None household members: family housing: house caffeine: No [facility] Anesthesia Checklist Patient Identification Patient Identification: Arm Band Structural Data Admitted From: Home Planned Operative Procedure/s: EGD/Colonoscopy Consent for Planned Operative Procedure(s) Verified: Yes Verified Documents: Surgical Consent and History and Physical NPO Status Verified Time NPO: 00:00 Additional verifications Anesthesia Reactions: No Hx Blood Transfusions: No Blood Transfusion Reaction: No Airway Assessment Mallampati Score:: Class II C-Spine Mobility Assessed: Yes TMJ Mobility Assessed: Yes Dentition: Good Dentition Neurological Assessment Level of Consciousness: Awake and Alert Anesthesia Plan Anesthesia Risk discussed: Yes Anesthesia Plan: Verified ASA Class: II Anesthesia Type: MAC
--- NOTE | 2023-07-18 09:54 | HMH.SCOPE ---
Procedure: Date: 07/18/23 Patient Date of :: 1980 Procedure Performed:: Colonoscopy Indications:: The patient is a 43 year old with abdominal pain and blood in stools Performing Provider:: Nicholas Haley MD Referring Provider:: Daryn Oswald MD Sedation:: See RN records Procedure:: After placing the patient in the left lateral decubitus position, the colonoscopy was gently inserted into the rectum and under direct visualization advanced to the cecum which was identified by transillumination in the right lower quadrant, identification of the ileocecal valve, appendiceal orifice, and cecal strap. Color, texture, mucosa, and anatomy of the colon were carefully examined with the scope. Findings:: Anal canal: normal Rectum: Hemorrhoids Sigmoid colon: Fair preparation Descending colon: Fair preparation Splenic flexure: Fair preparation Transverse colon: Poor preparation Hepatic flexure: Poor preparation Ascending colon: Polyp less than 5 mm in size. Removed with cold snare polypectomy. Poor preparation Cecum: Poor preparation Terminal ileum: not visualized Impression: Polyp of ascending colon Poor bowel preparation Recommendations:: Await pathology results Repeat colonoscopy within 6 months with 2 days liquid diet and split dose bowel preparation Follow up in GI office for further evaluation of abdominal pain Complications:: none Estimated blood obtained (mL): 0 Colonoscopy Component Colonoscopy Component Was a colonoscopy performed during today's procedure?: Yes Recommended follow up colonoscopy of at least 10 years?: Yes
[2023-07-18 09:57] VITALS: BP 93/51; PULSE 55; RESP 16; TEMP 36.2; O2SAT 93
--- NOTE | 2023-07-18 09:57 | HMH.SCOPE ---
Procedure: Date: 07/18/23 Patient Date of :: 1980 Procedure Performed:: EGD Indications:: Abdominal pain Performing Provider:: Nicholas Haley MD Referring Provider:: Daryn Oswald MD Sedation:: See RN records Procedure:: The gastroscope was gently passed through the incisoral orifice into the oral cavity and under direct visualization the esophagus was intubated. The endoscope was passed down the esophagus, through the stomach, and into the duodenum. Color, texture, mucosa, and anatomy of the esophagus, stomach, and duodenum were carefully examined with the scope.. Findings:: Oropharynx: normal Esophagus: normal EG Junction: intact at 40 cm Cardia: normal Fundus: normal Body: normal. Biopsies obtained Antrum: normal. Biopsy obtained Duodenal bulb: normal Duodenum (second and third portion): normal. Biopsies obtained Impression: Normal appearing esophagus, stomach, and duodenum Recommendations:: Await pathology results Move forward to colonosocpy Complications:: none Estimated blood obtained (mL): 0 Colonoscopy Component Colonoscopy Component Was a colonoscopy performed during today's procedure?: No
[2023-07-18 10:07] VITALS: BP 118/73; PULSE 65; RESP 16; O2SAT 100
--- NOTE | 2023-07-18 10:08 | EXP.ANES.CKL ---
[facility] Disclaimer: The information contained in this section may have been updated after the patient was seen, as this information can be updated by other users. Medical History Asthma COPD (chronic obstructive pulmonary disease) History of gastroesophageal reflux (GERD) Kidney stone Surgical History History of knee replacement Family History Other Family history of acute congestive heart failure Family history of cancer Family history of diabetes mellitus type II Social History Smoking Status: Current every day smoker tobacco type: cigarettes packs per day: 3 years smoked: 25 second hand exposure: Yes alcohol intake: current substance use type: marijuana current occupational status: employed Travel in the last 8 weeks: None household members: family housing: house caffeine: No [facility] Anesthesia Checklist Patient Identification Patient Identification: Arm Band Structural Data Admitted From: Home Planned Operative Procedure/s: EGD/Colonoscopy Consent for Planned Operative Procedure(s) Verified: Yes Verified Documents: Surgical Consent and History and Physical NPO Status Verified Time NPO: 00:00 Additional verifications Anesthesia Reactions: No Hx Blood Transfusions: No Blood Transfusion Reaction: No Airway Assessment Mallampati Score:: Class II C-Spine Mobility Assessed: Yes TMJ Mobility Assessed: Yes Dentition: Good Dentition Neurological Assessment Level of Consciousness: Awake and Alert Anesthesia Plan Anesthesia Risk discussed: Yes Anesthesia Plan: Verified ASA Class: II Anesthesia Type: MAC
[2023-07-18 10:17] VITALS: BP 122/79; PULSE 62; RESP 18; O2SAT 100
== END 2023-07-18 10:25 | disposition home or self-care (01) ==
PROVIDERS: PCP Emergency Medicine; Visit Provider Internal Medicine
PROC: 0DJ08ZZ Inspection of Upper Intestinal Tract, Via Natural or Artificial Opening Endoscopic (ICD-10-PCS; CPT 43235; principal; 2023-07-18 09:30)
DX: K29.50 Unspecified chronic gastritis without bleeding (principal); K51.40 Inflammatory polyps of colon without complications; K92.1 Melena; K64.8 Other hemorrhoids
CPT/HCPCS: 43239; 45385

== ENCOUNTER 2024-08-25 08:09 | Emergency (ER) | payer SELFPAY ==
[2024-08-25] VITALS (7 sets, daily range): BP systolic 101–140; BP diastolic 63–96; PULSE 54–83; RESP 16–19; TEMP 36.7–36.9; O2SAT 95–99; BMI 28.7
--- NOTE | 2024-08-25 08:30 | PC.NURSE ---
Dr. Loera at bedside
--- NOTE | 2024-08-25 08:34 | XR_ITS ---
FINAL REPORT CLINICAL HISTORY: Shortness of breath COMPARISON: 01/19/2023 FINDINGS: A single PA view of the chest was obtained. The cardiac and mediastinal silhouettes are within normal limits. The lungs are clear. There is no effusion or pneumothorax. IMPRESSION: No radiographic evidence of acute cardiac or pulmonary disease on this single view of the chest. Reviewed, Interpreted and Dictated by Beckie Carlisle MD Transcribed by Amara Mojica Authenticated and [facility]
--- NOTE | 2024-08-25 08:36 | HMH.EDGENADL ---
Discharge Plan Disposition Patient Disposition: Home, Self-Care Prescriptions Prescriptions: New ondansetron 4 mg tablet,disintegrating 4 mg PO Q6H PRN (Reason: nausea and vomiting) 5 Days Qty: 20 0RF No Action pantoprazole [Protonix] 40 mg tablet,delayed release (DR/EC) 40 mg PO DAILY Qty: 90 0RF cyclobenzaprine 10 mg tablet 10 mg PO HS PRN (Reason: muscle spasm) Qty: 10 0RF ondansetron HCl 4 mg tablet 4 mg PO Q8H Qty: 20 0RF albuterol sulfate 90 mcg/actuation HFA aerosol inhaler 4 inh inhalation Q4H PRN (Reason: shortness of breath or wheezing) Qty: 8.5 0RF Rx Instructions: 4 puffs every 4 hours for 48 hours then as needed for shortness of breath or wheezing following Referrals Follow up/Referrals: Gina Delatorre APRN [Primary Care Provider] - See instructions Activity Restrictions/Add. Instructions Additional Instructions/Restrictions: Your symptoms are all consistent with COVID-19 viral syndrome. The care is supportive as discussed including Tylenol ibuprofen the nausea medicine that has been prescribed as well as drinking aggressive fluids as discussed. This should be self-limiting in several days please return with any significant worsening of your symptoms. Clinical Impressions Clinical Impression: COVID-19, Acute viral syndrome Stand Alone Forms Stand Alone Forms: Work/School Release Print Language Print Language: Belarusian Discharge ED Provider: Rory Loera General Adult HPI General Chief complaint: Weakness Stated complaint: abd pain, blurry vision, fever, dizzy, H/A, neck p Time Seen by Provider: 08/25/24 08:30 Mode of Arrival: Ambulatory Source of Information: Patient Limitations: No Limitations Description of Symptoms (Recalled from ER Triage Doc. by RN): pt states he has been sick since Sunday. pt c/o myalgia, fever, weakness, dizziness, fatigue, an intermittant WILLIAMSON, N/V, a productive cough with brown sputum, and neck stiffness. pt reports his WILLIAMSON is sharp and posterior when he has it, no WILLIAMSON at this time. pt reports he has been taking old antibiotics. pt reports since Sunday he has taken 1 amoxivillin tablet and 6 cipro tablets. pt denies any LOC or chest pain. History of Present Illness HPI narrative: Patient is a 44-year-old male presenting today with several days of nausea headache cough fever body aches also states he is incredibly fatigued and has been a bit lightheaded and dizzy the last several days. Does state he has had some chronic nausea and fatigue that preceded this but is currently being worked up by notch machine operator outpatient. Related Data Previous Rx's ?Medication ?Instructions ?Recorded albuterol sulfate 90 mcg/actuation 4 inh inhalation Q4H PRN shortness 01/19/23 aerosol inhaler of breath or wheezing #8.5 grams pantoprazole 40 mg tablet,delayed 40 mg PO DAILY #90 tabs 07/10/23 release (Protonix) cyclobenzaprine 10 mg tablet 10 mg PO HS PRN muscle spasm #10 07/31/23 tabs ondansetron HCl 4 mg tablet 4 mg PO Q8H #20 tabs 07/31/23 ondansetron 4 mg disintegrating 4 mg PO Q6H PRN nausea and 08/25/24 tablet vomiting 5 days #20 tabs Allergies Allergy/AdvReac Type Severity Reaction Status Date / Time No Known Allergies Allergy Verified 08/25/24 08:29 [facility] Disclaimer: The information contained in this section may have been updated after the patient was seen, as this information can be updated by other users. Medical History (Updated 08/25/24 @ 10:06 by Rory Loera MD) Abdominal pain Kidney stone COPD (chronic obstructive pulmonary disease) Asthma History of gastroesophageal reflux (GERD) Reactive airway disease Chest pain Overweight (BMI 25.0-29.9) Kidney stone on right side Exposure to COVID-19 virus Viral syndrome COVID-19 virus test result unknown Bronchitis Renal colic on left side Acute lateral meniscal injury of left knee Tear of lateral collateral ligament of left knee Knee injury Foreign body of right cornea Surgical History (Updated 07/31/23 @ 15:16 by Gina Delatorre APRN) History of esophagogastroduodenoscopy (EGD) History of colonoscopy History of knee replacement Family History Other Family history of acute congestive heart failure Family history of cancer Family history of diabetes mellitus type II Social History Smoking Status: Current every day smoker tobacco type: cigarettes packs per day: 3 years smoked: 25 second hand exposure: Yes alcohol intake: current alcohol intake frequency: a few times a month substance use type: marijuana current occupational status: employed Travel in the last 8 weeks: None household members: family housing: house caffeine: No Have you lived/traveled outside [place] in past 30 days?: No Contact w/someone who lives/traveled outside US past 30 days?: No Exposure to someone with infectious disease in past 14 days?: No Do you have a fever (greater than 100.4 F or 38 C)?: Yes Have you tested positive for COVID-19: No Exposed to someone with COVID-19 in past 14 days?: No Do you have a sore throat?: No Do you have a cough?: Yes Do you have any weakness?: Yes Do you have any diarrhea?: No Are you experiencing any unusual bleeding?: No Do you have any muscle aches/pain?: Yes Do you have any abdominal pain?: Yes Are you experiencing loss of taste or smell?: No Other Medical History Have you received the Flu Vaccine for this season: No Have you received the Pneumonia Vaccine: No ROS Obtained: Yes All systems reviewed & no additional complaints except as documented Physical Exam General General appearance: alert Respiratory Respiratory exam: Present normal lung sounds bilaterally; Absent respiratory distress Cardiovascular Cardiovascular exam: Present regular rate and normal rhythm Neurological Exam Neurological exam: Present alert and oriented X3 Medical Decision Making Medical Records Screening: Per USPSTF and CDC recommendations, given the prevalence of disease in our region, it is our hospital?s policy to screen for HIV and viral Hepatitis for all patients aged 18 and over and those with ongoing risk factors. [place] Inquiry Pt receiving controlled substance: No Vital Signs: 08/25/24 08:16 08/25/24 08:20 08/25/24 08:30 Temperature 98.4 F Temperature Source Oral Pulse Rate 74 83 Pulse Rate [Left] 81 Respiratory Rate 16 Blood Pressure 140/96 H 120/94 H Blood Pressure [Right Arm] 140/96 H Blood Pressure Mean [Right Arm] 110 Blood Pressure Source [Right Arm] Automatic Cuff Blood Pressure Position [Right Arm] Sitting 02 Sat by Pulse Oximetry 99 99 98 Oxygen Delivery Method Room Air Room Air Room Air 08/25/24 09:00 08/25/24 09:30 08/25/24 10:00 Temperature Temperature Source Pulse Rate 63 54 L 54 L Pulse Rate [Left] Respiratory Rate Blood Pressure 101/69 L 105/63 L 108/63 L Blood Pressure [Right Arm] Blood Pressure Mean [Right Arm] Blood Pressure Source [Right Arm] Blood Pressure Position [Right Arm] 02 Sat by Pulse Oximetry 95 97 97 Oxygen Delivery Method Room Air Room Air Room Air Lab Data Lab results reviewed: Yes I reviewed the patient's lab results. Lab Results 08/25/24 08:20: WBC 4.9, RBC 4.84, Hgb 15.3, Hct 45.5, MCV 94.0, MCH 31.6 H, MCHC 33.6, RDW 12.9, Plt Count 206, MPV 9.0, Neut % (Auto) 49.9, Lymph % (Auto) 38.9, [place] % (Auto) 7.3, Eos % (Auto) 3.3, Baso % (Auto) 0.4, Neut # (Auto) 2.5, Lymph # (Auto) 1.9, [place] # (Auto) 0.4, Eos # (Auto) 0.2, Baso # (Auto) 0.0, Sodium 141, Potassium 4.5, Chloride 106, Carbon Dioxide 28, BUN 17, Creatinine 0.80, Glucose 101 H, Calcium 8.9, Total Bilirubin 0.3, AST 38, ALT 32, Alkaline Phosphatase 59, Troponin I < 0.01, Total Protein 6.9, Albumin 4.2, SARS-CoV-2 (PCR) Detected A, Influenza A Untype (PCR) Not detected, Influenza Type B (PCR) Not detected 08/25/24 08:20 08/25/24 08:20 Orders (Tests/Meds): ED MEDICATIONS Discontinued Medications Generic Name Dose Route Start Last Admin Trade Name Freq PRN Reason Stop Dose Admin Acetaminophen 1,000 mg 08/25/24 08:34 08/25/24 09:03 Acetaminophen 1,000mg/100ml Vial IV 08/25/24 08:35 1,000 mg ONCE ONE Administration Sodium Chloride 1,000 mls @ 999 mls/hr 08/25/24 08:45 08/25/24 09:03 Sod Chlor 0.9% 1000ml Bag IV 08/25/24 09:45 999 mls/hr .Q1H1M ALEX Administration Ondansetron HCl 4 mg 08/25/24 08:34 08/25/24 09:02 Ondansetron 4mg/2ml Vial IV 08/25/24 08:35 4 mg ONCE ONE Administration ORDERS Category Date Time Status CXR --portable [XR chest portable] Stat Exams 08/25/24 08:34 Taken CBC w/Auto Diff [Complete Blood Count Auto Diff] Stat Lab 08/25/24 08:20 Completed CMP [Comprehensive Metabolic Panel] Stat Lab 08/25/24 08:20 Results HIV Combo Stat Lab 08/25/24 08:20 Received Hep C Ab with Reflex to RNA Stat Lab 08/25/24 08:20 Received Rapid PCR Covid and Flu A/B Stat Lab 08/25/24 08:20 Completed Trop I [Troponin I] Stat Lab 08/25/24 08:20 Results Troponin I Q3H Lab 08/25/24 11:45 Ordered Troponin I Q3H Lab 08/25/24 14:45 Ordered Medical Decision Narrative: 44-year-old with above history and physical most likely viral in nature states he feels like he has had the flu but he feels much sicker than he has experienced in the past with viral syndrome type symptoms. Overall his chronic fatigue and nausea also have complicated this as he is concerned just at baseline but he has not followed up with primary care doctor and did follow-up with a notch machine operator once but has not seen them since a colonoscopy. Overall his exam is unremarkable from an emergency standpoint but will get basic blood work in the setting of this viral illness and administer IV fluids Tylenol and Zofran to treat his current symptoms and edition will get a chest x-ray to rule out any type of consolidation or pneumonia. I will still recommend that he follow-up closely with his outpatient providers I will reassess after this initial workup is complete. Reassessments 10:06 AM patient feeling much better serial assessments are normal from a vital sign standpoint. Patient was positive for COVID-19 which explains the patient's constellation of symptoms. Patient is not high risk from a historical standpoint therefore will not prescribe Paxlovid this was discussed with the patient. Nausea medicine has been prescribed supportive care discussed return precautions emphasized and patient was discharged in a stable and improved condition. Critical Care Critical Care Time Critical Care Time: No
[2024-08-25 08:41] LABS: Influenza A, PCR Not Detected (NotDetected); Influenza B, PCR Not Detected (NotDetected)
[2024-08-25 08:49] LABS: Albumin Level 4.2 g/dl (3.5-5.0); Chloride 106 mmol/L (98-107); Potassium 4.5 mmoL/L (3.5-5.1); Sodium 141 mmol/L (136-145)
--- NOTE | 2024-08-25 08:49 | ECG_ITS ---
APPROVED REPORT Exam: Resting ECG HR:61 bpm ECG Measurements Heart Rate 61 AXES KS 151 P 36 QRSd 114 QRS -12 QT 388 T 33 QTc 391 Conclusion SINUS RHYTHM MODERATE INTRAVENTRICULAR CONDUCTION DELAY [110+ ms QRS DURATION] BORDERLINE ECG UNCONFIRMED REPORT Electronically signed by : Mirza Loera, 08/25/2024 15:33:01
[2024-08-25 08:51] LABS: Blood Urea Nitrogen 17 mg/dl (9-20); Creatinine Clearance Estimated 153 mL/min (50-200); Estimated Glomerular Filt Rate 106 ml/min (>60); GFR (African American) 128 ML/MIN (>60)
[2024-08-25 08:52] LABS: Alanine Aminotransferase 32 U/L (12-78); Albumin/Globulin Ratio 1.6 (1.1-1.8); Alkaline Phosphatase 59 U/L (38-126); Anion Gap 11.5 mEq/L (5-15); Aspartate Amino Transferase 38 U/L (17-59); Bilirubin,Total 0.3 mg/dl (0.2-1.3); Calcium 8.9 mg/dl (8.4-10.2); Carbon Dioxide 28 mmol/L (22.0-30.0); Globulin 2.7 g/dL (1.3-3.2); Glucose 101 mg/dl (74-100); Total Protein,Serum 6.9 g/dl (6.3-8.2)
[2024-08-25 08:54] LABS: Basophils % 0.4 % (0.1-2.0); Eosinophils # 0.2 K/mm3 (0.0-0.4); Eosinophils % 3.3 % (0.1-12.0); Hematocrit 45.5 % (42.0-52.0); Hemoglobin 15.3 g/dL (14.1-18.0); Lymphocytes # 1.9 K/mm3 (0.7-4.5); Lymphocytes % 38.9 % (10-50); Mean Corpuscular HGB Conc 33.6 g/dL (31.8-35.4); Mean Corpuscular Hemoglobin 31.6 pg (27.0-31.2); Monocytes # 0.4 K/mm3 (0.1-1.0); Monocytes % 7.3 % (1.7-9.3); Neutrophils # 2.5 K/mm3 (1.8-7.8); Neutrophils % 49.9 % (37.0-80.0); Platelet Count 206 K/mm3 (142-424); Red Blood Count 4.84 M/mm3 (4.60-6.20); Red Cell Distribution Width 12.9 % (11.5-17.5); White Blood Count 4.9 K/mm3 (4.8-10.8)
[2024-08-25] MEDS: ONDANSETRON 4MG/2ML VIAL 4 MG IV (09:02)
[2024-08-25] MEDS: ACETAMINOPHEN 1,000MG/100ML VIAL 1000 MG IV (09:03)
[2024-08-25] MEDS: 0.9 % SODIUM CHLORIDE 1000ML 1,000 ML 999 ML IV (09:03)
[2024-08-25 09:13] LABS: Troponin I < 0.01 ng/ml (0.00-0.034)
[2024-08-25 09:51] LABS: Coronavirus 19, PCR Detected (NotDetected)
[2024-08-25 10:44] LABS: HIV Combo NEGATIVE (Negative)
[2024-08-26 05:33] LABS: HCV Ab Non Reactive (Non Reactive)
== END 2024-08-25 10:15 | disposition home or self-care (01) ==
PROVIDERS: Emergency Provider Student in an Organized Health Care Education/Training Program; PCP Nurse Practitioner Family
DX: U07.1 COVID-19 (principal); B34.9 Viral infection, unspecified; R50.9 Fever, unspecified; R53.1 Weakness; R42 Dizziness and giddiness; R53.83 Other fatigue; R51.9 Headache, unspecified; M79.10 Myalgia, unspecified site; R11.2 Nausea with vomiting, unspecified; R05.9 Cough, unspecified
CPT/HCPCS: 71045; 80053; 84484; 85025; 86803; 87389; 87636; 93005; 96361; 96374; 96375; 99284; J0131; J2405; J7030